=== PATIENT | female | born 2000 | race Caucasian/White ===

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

== ENCOUNTER 2020-02-04 17:33 | Emergency (ER) | payer OTHER ==
[~2020-02-04] VITALS: Ht 165.1 cm; Wt 130.0 kg
[2020-02-04 18:09] VITALS: BP 118/58
--- NOTE | 2020-02-04 18:09 | PHYS DOC ---
Past Medical History Past Medical History: No Pertinent History (PARTH BONILLA APRN) Past Surgical History: Tonsillectomy (PARTH BONILLA APRN) Smoking Status: Current Every Day Smoker Alcohol Use: Occasionally Drug Use: Marijuana (PARTH BONILLA APRN) Attending Signature I have participated in the care of this patient and I have reviewed and agree with all pertinent clinical information above including history, exam, and recommendations. (VIDHI ALVARADO MD) Adult General Chief Complaint Chief Complaint: FLU SYMPTOM HPI HPI Patient is a 19 year old female 1 para 0 currently 6 months who presents to the ED today complaining of subjective fevers, runny nose and teary eyes, symptoms began yesterday. Patient reports following up with her CIRCUITS ENGINEER for OB care. Denies any abdominal pain, vaginal bleeding, nausea or vomiting. Denies any urinary symptoms. (PARTH BONILLA APRN) Review of Systems Review of Systems Constitutional: Reports subjective fevers Eyes: Reports teary eyes. Denies change in visual acuity, redness, or eye pain [] HENT: Reports nasal congestion, denies sore throat [] Respiratory: Denies cough or shortness of breath [] Cardiovascular: No additional information not addressed in HPI [] GI: Denies abdominal pain, nausea, vomiting, bloody stools or diarrhea [] : Denies dysuria or hematuria [] Musculoskeletal: Denies back pain or joint pain [] Integument: Denies rash or skin lesions [] Neurologic: Denies headache, focal weakness or sensory changes [] All other systems were reviewed and found to be within normal limits, except as documented in this note. (PARTH BONILLA APRN) Allergies Allergies Allergies Coded Allergies Type Severity Reaction Last Updated Verified No Known Drug Allergies 02/16/14 No (VIDHI ALVARADO MD) Physical Exam Physical Exam Constitutional: Well developed, well nourished, no acute distress, non-toxic appearance. [] HENT: Normocephalic, atraumatic, bilateral external ears normal, oropharynx moist, no oral exudates, nose normal. [] Eyes: PERRLA, EOMI, conjunctiva normal, no discharge. [] Neck: Normal range of motion, no tenderness, supple, no stridor. [] Cardiovascular:Heart rate regular rhythm, no murmur [] Lungs & Thorax: Bilateral breath sounds clear to auscultation [] Abdomen: Gravid abdomen. Bowel sounds normal, soft, no tenderness, no masses, no pulsatile masses. [] Skin: Warm, dry, no erythema, no rash. [] Back: No tenderness, no CVA tenderness. [] Extremities: No tenderness, no cyanosis, no clubbing, ROM intact, no edema. [] Neurologic: Alert and oriented X 3, normal motor function, normal sensory function, no focal deficits noted. [] Psychologic: Affect normal, judgement normal, mood normal. [] (PARTH BONILLA APRN) Current Patient Data Vital Signs Vital Signs Date Time Temp Pulse Resp B/P (MAP) Pulse Ox O2 Delivery O2 Flow Rate FiO2 02/04/20 18:09 98.6 105 16 118/58 (78) 99 Room Air 98.6 (VIDHI ALVARADO MD) Lab Values Laboratory Tests Test 02/04/20 17:50 02/04/20 18:00 Urine Collection Type Unknown Urine Color Yellow Urine Clarity Clear Urine pH 7.5 (<5.0-8.0) Urine Specific [place] 1.015 (1.000-1.030) Urine Protein Negative mg/dL (NEG-TRACE) Urine Glucose (UA) Negative mg/dL (NEG) Urine Ketones (Stick) 40 mg/dL (NEG) Urine Blood Negative (NEG) Urine Nitrite Negative (NEG) Urine Bilirubin Negative (NEG) Urine Urobilinogen Dipstick 1.0 mg/dL (0.2 mg/dL) Urine Leukocyte Esterase Trace (NEG) Urine RBC 3-5 /HPF (0-2) Urine WBC 11-20 /HPF (0-4) Urine Squamous Epithelial Cells Many /LPF Urine Bacteria Moderate /HPF (0-FEW) Urine Hyaline Casts Few /HPF Urine Mucus Mod /LPF Influenza Type A Antigen Negative (NEGATIVE) Influenza Type B Antigen Negative (NEGATIVE) (VIDHI ALVARADO MD) Lab Values Laboratory Tests Test 02/04/20 17:50 02/04/20 18:00 Urine Collection Type Unknown Urine Color Yellow Urine Clarity Clear Urine pH 7.5 (<5.0-8.0) Urine Specific [place] 1.015 (1.000-1.030) Urine Protein Negative mg/dL (NEG-TRACE) Urine Glucose (UA) Negative mg/dL (NEG) Urine Ketones (Stick) 40 mg/dL (NEG) Urine Blood Negative (NEG) Urine Nitrite Negative (NEG) Urine Bilirubin Negative (NEG) Urine Urobilinogen Dipstick 1.0 mg/dL (0.2 mg/dL) Urine Leukocyte Esterase Trace (NEG) Urine RBC 3-5 /HPF (0-2) Urine WBC 11-20 /HPF (0-4) Urine Squamous Epithelial Cells Many /LPF Urine Bacteria Moderate /HPF (0-FEW) Urine Hyaline Casts Few /HPF Urine Mucus Mod /LPF Influenza Type A Antigen Negative (NEGATIVE) Influenza Type B Antigen Negative (NEGATIVE) (PARTH BONILLA APRN) EKG EKG [] (PARTH BONILLA APRN) Radiology/Procedures Radiology/Procedures [] (PARTH BONILLA APRN) Course & Med Decision Making Course & Med Decision Making Pertinent Labs and Imaging studies reviewed. (See chart for details) This is a 19-year-old female who presents to the ED today complaining of subjective fevers, teary eyes, nasal congestion, symptoms since yesterday. She is currently 6 months with no complaints/ complications. Follows up with an CIRCUITS ENGINEER. Negative influenza A/B. Patient was discharged to home. Given instructions on supportive care measures related to upper respiratory infection symptoms/allergies. Follow-up with CIRCUITS ENGINEER next week. (PARTH BONILLA APRN) Dragon Disclaimer Dragon Disclaimer This electronic medical record was generated, in whole or in part, using a voice recognition dictation system. (PARTH BONILLA APRN) Departure Departure Impression: Primary Impression: Upper respiratory infection Additional Impression: Allergic rhinitis Disposition: HOME, SELF-CARE Condition: STABLE Referrals: NO PCP (PCP) follow up with your doctor in 1-2 weeks Patient Instructions: Allergic Rhinitis, Upper Respiratory Infection, Adult, Nuut-na-Ehma Problem Qualifiers Primary Impression: Upper respiratory infection URI type: unspecified URI Qualified Codes: J06.9 - Acute upper respiratory infection, unspecified Additional Impression: Allergic rhinitis Allergic rhinitis trigger: unspecified Allergic rhinitis seasonality: unspecified Qualified Codes: J30.9 - Allergic rhinitis, unspecified PARTH BONILLA APRN Feb 04, 2020 18:09 VIDHI ALVARADO MD Feb 04, 2020 21:40
[2020-02-04 18:18] LABS: BILIRUBIN,URINE NEGATIVE (NEG); CLARITY,URINE CLEAR; COLOR,URINE YELLOW; NITRITE,URINE NEGATIVE (NEG); PH,URINE 7.5 (<5.0-8.0); PROTEIN,URINE NEGATIVE (NEG-TRACE)
[2020-02-04 18:26] LABS: HYALINE CASTS, URINE FEW /HPF; SQUAMOUS EPITHELIAL CELL,UR MANY /LPF
[2020-02-04 18:28] LABS: BACTERIA,URINE MODERATE /HPF (0-FEW)
[2020-02-04 18:34] LABS: INFLUENZA A PATIENT NEGATIVE (NEGATIVE); INFLUENZA B PATIENT NEGATIVE (NEGATIVE)
== END 2020-02-04 18:50 | disposition home or self-care (01) ==
LOC: ER 17:33
DX: J30.9 Allergic rhinitis, unspecified (principal); J06.9 Acute upper respiratory infection, unspecified; F17.200 Nicotine dependence, unspecified, uncomplicated
CPT/HCPCS: 81001; 87086; 87804; 99283

== ENCOUNTER 2020-02-11 20:45 | Emergency (ER) | payer OTHER ==
[~2020-02-11] VITALS: Ht 160 cm; Wt 57.2 kg
[2020-02-11] MEDS ORDERED: NEOM10SO7 LEFT EAR (21:45)
--- NOTE | 2020-02-11 21:46 | PHYS DOC ---
Past Medical History Past Medical History: No Pertinent History (ROSANNE CHENG APRN) Past Surgical History: Tonsillectomy (ROSANNE CHENG APRN) Smoking Status: Current Every Day Smoker Additional Information: 3 cigarettes per day Alcohol Use: None Drug Use: Marijuana (ROSANNE CHENG APRN) Attending Signature I have participated in the care of this patient and I have reviewed and agree with all pertinent clinical information above including history, exam, and recommendations. (VIDHI ALVARADO MD) Adult General Chief Complaint Chief Complaint: EARACHE/EAR PAIN HPI HPI Patient is a 19 year old female who presents with left ear pain and reduced hearing that has been ongoing since she woke up this morning. She states that she is 6 months . Denies fever or any other symptoms. Complete ROS were reviewed and found to be within normal limits, except as documented in the HPI (ROSANNE CHENG APRN) Allergies Allergies Allergies Coded Allergies Type Severity Reaction Last Updated Verified No Known Drug Allergies 02/16/14 No (VIDHI ALVARADO MD) Physical Exam Physical Exam Constitutional: Well developed, well nourished, no acute distress, non-toxic appearance. [] HENT: Normocephalic, atraumatic, left tympanic membranes has white fungus, no foreign body noted, oropharynx moist, no oral exudates, nose normal. [] Neurologic: Alert and oriented X 3, normal motor function, normal sensory function, no focal deficits noted. [] Psychologic: Affect normal, judgement normal, mood normal. [] (ROSANNE CHENG APRN) Current Patient Data Vital Signs Vital Signs Date Time Temp Pulse Resp B/P (MAP) Pulse Ox O2 Delivery O2 Flow Rate FiO2 02/11/20 21:51 98.7 76 16 106/60 (75) 100 Room Air 98.7 (VIDHI ALVARADO MD) EKG EKG [] (ROSANNE CHENG APRN) Radiology/Procedures Radiology/Procedures [] (ROSANNE CHENG APRN) Course & Med Decision Making Course & Med Decision Making Pertinent Labs and Imaging studies reviewed. (See chart for details) Patient has otitis externa. Will place on Cortisporin and have follow up with ENT. (ROSANNE CHENG APRN) Dragon Disclaimer Dragon Disclaimer This electronic medical record was generated, in whole or in part, using a voice recognition dictation system. (ROSANNE CHENG APRN) Departure Departure Impression: Primary Impression: Otitis externa Disposition: HOME, SELF-CARE Condition: STABLE Referrals: NO PCP (PCP) BROOKLYN HUSAIN MD Patient Instructions: Otitis Externa, Otomycosis-Brief Additional Instructions: Thank you for visiting [facility]. We appreciate you trusting us with your care. If any additional problems come up don't hesitate to return to visit us. Please follow up with your primary care provider so they can plan additional care if needed and know about the problem that you had. If symptoms worsen come back to the Emergency Department. Any concerning symptoms that start such as chest pain, shortness of air, weakness or numbness on one side of the body, running high fevers or any other concerning symptoms return to the ER. Please follow-up with an ENT I have referred you to one on your discharge paperwork. Scripts Neomycin/Polymyxin B Sulf/Hc ([id number]-[id number]-RR EAR SOLN) 10 Ml Solution 4 DROP LEFT EAR QID for 10 Days, #10 ML 0 Refills Prov: ROSANNE CHENG APRN 02/11/20 Problem Qualifiers Primary Impression: Otitis externa Otitis externa type: unspecified type Chronicity: acute Laterality: left Qualified Codes: H60.502 - Unspecified acute noninfective otitis externa, left ear ROSANNE CHENG APRN Feb 11, 2020 21:45 VIDHI ALVARADO MD Feb 12, 2020 01:31
[2020-02-11 21:51] VITALS: BP 106/60
== END 2020-02-11 21:56 | disposition home or self-care (01) ==
LOC: ER 20:45
DX: O99.89 Other specified diseases and conditions complicating pregnancy, childbirth and the puerperium (principal); H60.502 Unspecified acute noninfective otitis externa, left ear; O99.332 Smoking (tobacco) complicating pregnancy, second trimester; F17.210 Nicotine dependence, cigarettes, uncomplicated; Z3A.24 24 weeks gestation of pregnancy
CPT/HCPCS: 99283